=== PATIENT | female | born 1960 | race Caucasian/White ===

== ENCOUNTER 2024-10-10 07:34 | Emergency (ER) | payer MEDICARE ==
[~2024-10-10] VITALS: Ht 157.5 cm; Wt 47.0 kg
[2024-10-10] MEDS ORDERED: LEVOTHYROXINE88 MC1 PO (07:44)
[2024-10-10] MEDS ORDERED: FUROSEMIDE20 MG PO (07:44)
[2024-10-10] MEDS ORDERED: ALDACTONE50 MG PO (07:45)
[2024-10-10] MEDS ORDERED: TRAMADOL HCL50 MG PO (07:45)
[2024-10-10] MEDS ORDERED: XYZAL5 MG PO (07:45)
[2024-10-10] MEDS ORDERED: OMEPRAZOLE20 MG PO (07:45)
[2024-10-10] MEDS ORDERED: ONDANSETRON ODT8 MG PO ×2 (07:46→09:37)
[2024-10-10] MEDS ORDERED: HYDROCODON-ACE1 EA10 PO (09:22)
[2024-10-10] MEDS ORDERED: HYDROmorphone HCL 1 MG/ML SYR IV ONE (09:30)
[2024-10-10 10:20] VITALS: BP 95/57
== END 2024-10-10 10:21 | disposition home or self-care (01) ==
LOC: ED 07:34
DX: S32.038A Other fracture of third lumbar vertebra, initial encounter for closed fracture (principal); Z88.0 Allergy status to penicillin; Z88.2 Allergy status to sulfonamides; Z88.8 Allergy status to other drugs, medicaments and biological substances; Z79.890 Hormone replacement therapy; Z79.899 Other long term (current) drug therapy; X50.0XXA Overexertion from strenuous movement or load, initial encounter
CPT/HCPCS: 72100; 96374; 99283-25; J1171